=== PATIENT | male | born 1975 ===

== ENCOUNTER 2020-07-15 10:27 | Emergency (ER) | payer OTHER ==
[~2020-07-15] VITALS: Ht 175.3 cm; Wt 72.6 kg
[~2020-07-15 10:27] MED LIST: CLON.2 PO; DIPATR PO; METH10; OXYC10ER PO; OXYC20ER PO; OXYC5; PROC5 PO
[2020-07-15] MEDS ORDERED: BUPRENORPHINE HC2 MG SL (10:39)
== END 2020-07-15 12:39 | disposition home or self-care (01) ==
LOC: ER 10:27
DX: S20.219A Contusion of unspecified front wall of thorax, initial encounter (principal); V43.52XA Car driver injured in collision with other type car in traffic accident, initial encounter; Y92.410 Unspecified street and highway as the place of occurrence of the external cause
CPT/HCPCS: 71046; 93005; 93010; 99284-25